=== PATIENT | male | born 1980 | race Two or more races ===

== ENCOUNTER 2020-08-16 19:02 | Emergency (ER) | payer OTHER ==
[~2020-08-16] VITALS: Ht 172.7 cm; Wt 113.4 kg
[2020-08-16 19:25] VITALS: BP 143/79
[2020-08-16] MEDS ORDERED: KETOROLAC TROMETH 30 MG/ML 1ML VIAL IV ONE (21:00)
[2020-08-16] MEDS ORDERED: HYDROcodone-ACET 7.5/325MG TAB PO ONE (21:00)
== END 2020-08-16 21:20 | disposition home or self-care (01) ==
LOC: ER 19:02 → EDBD 19:02 → ER 21:20
DX: S20.211A Contusion of right front wall of thorax, initial encounter (principal); S40.021A Contusion of right upper arm, initial encounter; S40.022A Contusion of left upper arm, initial encounter; Z88.0 Allergy status to penicillin; V49.49XA Driver injured in collision with other motor vehicles in traffic accident, initial encounter; Y92.488 Other paved roadways as the place of occurrence of the external cause; Y93.89 Activity, other specified; Y99.8 Other external cause status
CPT/HCPCS: 71046; 93005